=== PATIENT | male | born 1955 | race Two or more races ===

== ENCOUNTER 2017-10-31 23:02 | Inpatient (IN) | payer BC ==
[~2017-10-31] VITALS: Ht 162.6 cm; Wt 40.2 kg
[2017-10-31 23:44] LABS: PLATELET COUNT 277 x10^3mcL (130-400)
[2017-10-31 23:48] LABS: RED CELL DISTRIBUTION WIDTH 14.7 % (11.5-14.5)
[2017-10-31 23:49] LABS: CALCIUM 8.9 mg/dL (8.5-10.1); CARBON DIOXIDE 27.5 mmol/L (21-32); CHLORIDE SERUM 99 mmol/L (98-107); GFR1 > 60 mL/min; GLUCOSE SERUM 269 mg/dL (74-106); POTASSIUM SERUM 3.6 mmol/L (3.5-5.1); SODIUM SERUM 137 mmol/L (136-145)
[2017-10-31 23:55] LABS: ALKALINE PHOSPHATASE 137 U/L (46-116); ALT/SGPT 13 U/L (16-63); AST/SGOT 19 U/L (15-37); BILIRUBIN TOTAL 0.73 mg/dL (0.20-1.00); TOTAL PROTEIN, SERUM 6.7 g/dL (6.4-8.2)
[2017-10-31 23:56] LABS: ALBUMIN 3.1 g/dL (3.4-5.0)
[2017-11-01] VITALS (7 sets, daily range): BP systolic 108–136; BP diastolic 58–70
[2017-11-01 00:22] LABS: BAND NEUTROPHIL 5 % (0-10); METAMYELOCTE 7 % (0-2); MONOCYTE 11 % (0-7); SEGMENTED NEUTROPHILS 70 % (37-75); rbc morphology (normal/abnorm) ABNORMAL (NORMAL)
[2017-11-01 00:23] LABS: PLATELET MORPHOLOGY FEW LARGE PLATELETS
[2017-11-01] MEDS ORDERED: CARDIZEM CD180 MG PO (02:11)
[2017-11-01] MEDS ORDERED: ELIQUIS5 MG PO (02:12)
[2017-11-01] MEDS ORDERED: PROVENTIL0.09 MG/A1 INH (02:13)
[2017-11-01] MEDS ORDERED: ALBUTEROL SULFAT3 M3 IH (02:13)
[2017-11-01] MEDS ORDERED: TRELEGY ELLIPTA (02:15)
[2017-11-01 03:13] LABS: MAGNESIUM 1.7 mg/dL (1.8-2.4); PHOSPHOROUS 3.4 mg/dL (2.5-4.9)
[2017-11-01 03:15] LABS: CHOLESTEROL/HDL RATIO 2.2
[2017-11-01 03:22] LABS: FREE T4 1.19 ng/dL (0.76-1.46); FREE THYROXINE INDEX 3.3 ug/dL (1.4-4.5); T4(THYROXINE) 9.1 ug/dL (4.7-13.3)
[2017-11-01 03:26] LABS: T3 TOTAL 0.96 ng/mL
[2017-11-01 04:13] LABS: PLATELET COUNT 271 x10^3mcL (130-400)
[2017-11-01 04:31] LABS: RED CELL DISTRIBUTION WIDTH 15.1 % (11.5-14.5)
[2017-11-01 04:32] LABS: CARBON DIOXIDE 25.1 mmol/L (21-32); CHLORIDE SERUM 97 mmol/L (98-107); CREATININE SERUM 1.1 mg/dL (0.7-1.3); GFR1 > 60 mL/min; GLUCOSE SERUM 357 mg/dL (74-106); POTASSIUM SERUM 3.1 mmol/L (3.5-5.1); SODIUM SERUM 136 mmol/L (136-145)
[2017-11-01 06:02] LABS: BAND NEUTROPHIL 3 % (0-10); MONOCYTE 1 % (0-7); PLATELET MORPHOLOGY PLATELETS NORMAL; SEGMENTED NEUTROPHILS 95 % (37-75); ovalocyte/elliptocyte 1+; rbc morphology (normal/abnorm) ABNORMAL (NORMAL)
[2017-11-01 07:02] LABS: UA SPECIFIC GRAVITY 1.025 (1.005-1.035); microscopic required? YES; urine erythrocyte 1+ (NEGATIVE)
[2017-11-01 07:09] LABS: AMPHETAMINE QUAL UR NONE DETECTED (NEG <=1000)
[2017-11-02 05:34] VITALS: BP 125/66
[2017-11-02 07:37] LABS: PLATELET COUNT 283 x10^3mcL (130-400); RED CELL DISTRIBUTION WIDTH 15.3 % (11.5-14.5)
[2017-11-02 07:43] LABS: CALCIUM 9.2 mg/dL (8.5-10.1); CARBON DIOXIDE 25.6 mmol/L (21-32); CHLORIDE SERUM 108 mmol/L (98-107); CREATININE SERUM 0.8 mg/dL (0.7-1.3); GFR1 > 60 mL/min; GLUCOSE SERUM 140 mg/dL (74-106); MAGNESIUM 2.8 mg/dL (1.8-2.4); POTASSIUM SERUM 3.5 mmol/L (3.5-5.1); SODIUM SERUM 144 mmol/L (136-145)
[2017-11-02 09:30] VITALS: BP 135/71
[2017-11-02 11:26] LABS: BAND NEUTROPHIL 4 % (0-10); BASOPHIL 0 % (0-2); MONOCYTE 4 % (0-7); PLATELET MORPHOLOGY PLATELETS NORMAL; SEGMENTED NEUTROPHILS 89 % (37-75); rbc morphology (normal/abnorm) ABNORMAL (NORMAL)
[2017-11-02 11:27] LABS: ovalocyte/elliptocyte 1+
[2017-11-02 13:58] VITALS: BP 163/85
[2017-11-02 17:27] VITALS: BP 144/69
[2017-11-02 20:30] VITALS: BP 140/76
[2017-11-03 04:50] VITALS: BP 156/72
[2017-11-03 07:30] LABS: CARBON DIOXIDE 28.8 mmol/L (21-32); CHLORIDE SERUM 107 mmol/L (98-107); CREATININE SERUM 0.7 mg/dL (0.7-1.3); GFR1 > 60 mL/min; GLUCOSE SERUM 128 mg/dL (74-106); POTASSIUM SERUM 3.6 mmol/L (3.5-5.1); SODIUM SERUM 144 mmol/L (136-145)
[2017-11-03 08:43] LABS: PLATELET COUNT 281 x10^3mcL (130-400); RED CELL DISTRIBUTION WIDTH 15.4 % (11.5-14.5)
[2017-11-03 10:17] VITALS: BP 135/69
[2017-11-03 11:13] LABS: BAND NEUTROPHIL 1 % (0-10); BASOPHIL 0 % (0-2); MONOCYTE 1 % (0-7); SEGMENTED NEUTROPHILS 96 % (37-75)
[2017-11-03 11:15] LABS: PLATELET MORPHOLOGY PLATELETS NORMAL; rbc morphology (normal/abnorm) ABNORMAL (NORMAL); tear drop cell (dacryocyte) 2+
[2017-11-03 14:14] VITALS: BP 151/74
[2017-11-03 16:22] VITALS: BP 139/71
[2017-11-03 21:31] VITALS: BP 147/77
[2017-11-04 06:07] VITALS: BP 159/89
[2017-11-04 07:41] LABS: PLATELET COUNT 287 x10^3mcL (130-400)
[2017-11-04 08:07] LABS: CALCIUM 8.9 mg/dL (8.5-10.1); CARBON DIOXIDE 30.1 mmol/L (21-32); CHLORIDE SERUM 105 mmol/L (98-107); CREATININE SERUM 0.7 mg/dL (0.7-1.3); GFR1 > 60 mL/min; GLUCOSE SERUM 138 mg/dL (74-106); POTASSIUM SERUM 3.4 mmol/L (3.5-5.1); SODIUM SERUM 143 mmol/L (136-145)
[2017-11-04 08:19] LABS: RED CELL DISTRIBUTION WIDTH 15.4 % (11.5-14.5)
[2017-11-04 09:07] VITALS: BP 155/65
[2017-11-04 09:10] VITALS: BP 155/65
[2017-11-04 10:32] LABS: BAND NEUTROPHIL 1 % (0-10); BASOPHIL 0 % (0-2); MONOCYTE 7 % (0-7); SEGMENTED NEUTROPHILS 90 % (37-75)
[2017-11-04 10:34] LABS: PLATELET MORPHOLOGY PLATELETS NORMAL; rbc morphology (normal/abnorm) ABNORMAL (NORMAL)
[2017-11-04 10:35] LABS: tear drop cell (dacryocyte) 1+
[2017-11-04 13:25] VITALS: BP 134/75
[2017-11-04 17:31] VITALS: BP 158/86
[2017-11-04 21:43] VITALS: BP 152/88
[2017-11-05 05:59] VITALS: BP 130/75
[2017-11-05 06:27] LABS: PLATELET COUNT 258 x10^3mcL (130-400)
[2017-11-05 06:41] LABS: RED CELL DISTRIBUTION WIDTH 15.3 % (11.5-14.5)
[2017-11-05 06:42] LABS: CALCIUM 8.5 mg/dL (8.5-10.1); CHLORIDE SERUM 105 mmol/L (98-107); CREATININE SERUM 0.6 mg/dL (0.7-1.3); GFR1 > 60 mL/min; GLUCOSE SERUM 127 mg/dL (74-106); MAGNESIUM 2.1 mg/dL (1.8-2.4); PHOSPHOROUS 2.9 mg/dL (2.5-4.9); POTASSIUM SERUM 4.1 mmol/L (3.5-5.1); SODIUM SERUM 143 mmol/L (136-145)
[2017-11-05 08:18] LABS: MONOCYTE 2 % (0-7); SEGMENTED NEUTROPHILS 93 % (37-75); rbc morphology (normal/abnorm) NORMAL (NORMAL)
[2017-11-05 09:32] VITALS: BP 157/72
[2017-11-05] MEDS ORDERED: LEVAQUIN750 MG PO (11:38)
[2017-11-05] MEDS ORDERED: LAC PO (11:45)
[2017-11-05] MEDS ORDERED: MEDROL DOSEPAK4 MG PO (11:45)
[2017-11-05] MEDS ORDERED: ZESTRIL20 MG PO (11:47)
[2017-11-05] MEDS ORDERED: NORCO1 TA2 PO (13:14)
[2017-11-05 13:26] VITALS: BP 142/74
== END 2017-11-05 14:25 | disposition home or self-care (01) | DRG 177 ==
LOC: ED 23:02 → DU 11-01 02:00
PROVIDERS: Emergency Medicine; Family Medicine; Family Medicine Sports Medicine
DX: J69.0 Pneumonitis due to inhalation of food and vomit (principal); N17.0 Acute kidney failure with tubular necrosis; J96.01 Acute respiratory failure with hypoxia; I16.1 Hypertensive emergency; J44.1 Chronic obstructive pulmonary disease with (acute) exacerbation; E44.0 Moderate protein-calorie malnutrition; Z68.1 Body mass index [BMI] 19.9 or less, adult; J44.0 Chronic obstructive pulmonary disease with (acute) lower respiratory infection; D68.59 Other primary thrombophilia; I10 Essential (primary) hypertension; Z80.8 Family history of malignant neoplasm of other organs or systems; Z82.49 Family history of ischemic heart disease and other diseases of the circulatory system; Z83.6 Family history of other diseases of the respiratory system; Z87.891 Personal history of nicotine dependence; E11.65 Type 2 diabetes mellitus with hyperglycemia; J20.9 Acute bronchitis, unspecified; R00.0 Tachycardia, unspecified; E87.6 Hypokalemia; E83.42 Hypomagnesemia; R31.9 Hematuria, unspecified
CPT/HCPCS: 82962; 83880; 84439; 87804; 90732; 97110-GP; 97116-GP; 97530-GP; J1200; J1956; J2543; J2920; J2930; J3475; J3480; J3490; J7030; J7613; J7620; J7626; J7644; Q0092; Q0163